=== PATIENT | male | born 1995 | race Caucasian/White ===

== ENCOUNTER 2017-02-25 19:42 | Emergency (ER) | payer BC ==
[~2017-02-25] VITALS: Ht 185.4 cm; Wt 90.9 kg
[2017-02-25 19:45] VITALS: BP 139/65; TEMP 98.7
[2017-02-25 21:10] VITALS: PULSE 75
== END 2017-02-25 21:12 | disposition home or self-care (01) ==
LOC: COL.ER 19:42
DX: S61.012A Laceration without foreign body of left thumb without damage to nail, initial encounter (principal); W26.0XXA Contact with knife, initial encounter; Y92.009 Unspecified place in unspecified non-institutional (private) residence as the place of occurrence of the external cause

== ENCOUNTER → 2017-11-06 | Outpatient (CLI) | payer BC | LOC: COL.RAD 13:24 | DX: Z01.89 Encounter for other specified special examinations (principal) ==